=== PATIENT | male | born 1995 | race Asian ===

== ENCOUNTER 2020-03-14 11:53 | Observation (INO) ==
[2020-03-14] MEDS ORDERED: SODIUM CHLORIDE 0.9% 1000ML 1,000 ML IV SCH (14:00)
[2020-03-14] MEDS ORDERED: ONDANSETRON INJ 2 MG/ML 2 ML VIAL IV STA (14:00)
--- NOTE | 2020-03-14 14:13 | Emergency Department Note ---
History of Present Illness General Chief Complaint: Abdominal Pain Stated Complaint: ABD PAIN Time Seen by Provider: 03/14/20 13:48 Source: patient Mode of arrival: ambulatory Limitations: no limitations History of Present Illness Provider Complaint: abdominal pain Onset (ago): 1 day(s) Pain Consistency: constant Location: RLQ Radiation: none Severity: moderate Maximum Pain Intensity: 7 Current Pain Intensity: 7 Quality: + stabbing and + sharp Relieved By: + nothing Exacerbated By: + movement Associated Symptoms: + nausea Treatments prior to arrival: none This 24-year-old male patient presents to the emergency department today for evaluation of right lower quadrant abdominal pain. The patient is here as a referral from [facility] for acute appendicitis rule out. The patient states over the weekend, he had some left lower quadrant pain. He was feeling somewhat better, but yesterday developed sudden onset of severe nausea and difficulty sleeping. At 5 AM, he awoke with right lower quadrant pain. The patient states the pain is significantly worse with moving. He has been unable to eat since yesterday but did drink a little bit of water at 1030 today. He does report a fever of 100.4 F this morning. He has taken no medications for his symptoms. He reports nausea but no vomiting. The pain has been progressively worsening and is radiating toward the umbilicus. He denies any chest pain, dyspnea, numbness, tingling, weakness, recent injury or trauma. He denies any flank pain. Home Medications Home Medications Medication Instructions Recorded Confirmed Type No Known Home Medications 03/14/20 03/14/20 History Allergies Allergy/AdvReac Type Severity Reaction Status Date / Time No Known Allergies Allergy Unverified 03/14/20 14:58 Past Med/Surg History Medical History No pertinent past medical history Surgical History No pertinent past surgical history Social History Smoking Status: Never smoker Do You Dip or Chew Tobacco: No; Hx Alcohol Use: No Hx Substance Use: No Review of Systems A total of 10 systems reviewed and were otherwise negative Physical Exam Vital Signs: Vital Signs - 24 hr 03/14/20 12:07 03/14/20 14:30 03/14/20 15:30 Temperature 37.5 C Temperature Source Oral Pulse Rate 118 H Pulse Rate [Apical ] Pulse Rate [Left A pical] 102 H Pulse Rhythm [Apic al] Pulse Rhythm [Left Apical] Regular Pulse Strength [Le ft Apical] Normal Respiratory Rate 18 20 Respiratory Effort / Characteristics Non-Labored Respiratory Depth Normal Respiratory Patter n Blood Pressure 137/77 Blood Pressure [Le ft Arm] Blood Pressure Alanis n 97 Blood Pressure Alanis n [Left Arm] Blood Pressure Pos ition [Left Arm] Pulse Oximetry 96 Oxygen Delivery Me thod Room Air Room Air Room Air Oxygen Flow Rate Sepsis Recent Feve r Within 48 Hours Yes Sepsis New/Unexpla ined Change in Men mayco Status No Sepsis Action Take n by Nursing No Action Required 03/14/20 16:24 03/14/20 16:27 03/14/20 16:48 Temperature 37.6 C H Temperature Source Oral Pulse Rate 91 H Pulse Rate [Apical ] Pulse Rate [Left A pical] 102 H Pulse Rhythm [Apic al] Pulse Rhythm [Left Apical] Regular Pulse Strength [Le ft Apical] Normal Respiratory Rate 20 18 Respiratory Effort / Characteristics Non-Labored Sponta neous Respiratory Depth Normal Respiratory Patter n Blood Pressure Blood Pressure [Le ft Arm] 122/76 144/88 H Blood Pressure Alanis n Blood Pressure Alanis n [Left Arm] 91 106 Blood Pressure Pos ition [Left Arm] Lying Pulse Oximetry 98 98 Oxygen Delivery Me thod Room Air Room Air Oxygen Flow Rate Sepsis Recent Feve r Within 48 Hours Sepsis New/Unexpla ined Change in Men mayco Status Sepsis Action Take n by Nursing 03/14/20 17:49 03/14/20 17:55 03/14/20 18:05 Temperature 36.7 C Temperature Source Temporal Artery Sc an Pulse Rate Pulse Rate [Apical ] 75 77 79 Pulse Rate [Left A pical] Pulse Rhythm [Apic al] Regular Regular Regular Pulse Rhythm [Left Apical] Pulse Strength [Le ft Apical] Respiratory Rate 15 16 16 Respiratory Effort / Characteristics Non-Labored Sponta neous Non-Labored Sponta neous Non-Labored Sponta neous Respiratory Depth Normal Normal Normal Respiratory Patter n Regular Regular Regular Blood Pressure Blood Pressure [Le ft Arm] 129/79 125/88 124/81 Blood Pressure Alanis n Blood Pressure Alanis n [Left Arm] 95 100 95 Blood Pressure Pos ition [Left Arm] Semi-fowlers Semi-fowlers Semi-fowlers Pulse Oximetry 98 97 98 Oxygen Delivery Me thod Oxymask Oxymask Oxymask Oxygen Flow Rate 6 6 6 Sepsis Recent Feve r Within 48 Hours Sepsis New/Unexpla ined Change in Men mayco Status Sepsis Action Take n by Nursing 03/14/20 18:15 03/14/20 18:25 03/14/20 18:35 Temperature 37.4 C Temperature Source Temporal Artery Sc an Pulse Rate Pulse Rate [Apical ] 85 88 89 Pulse Rate [Left A pical] Pulse Rhythm [Apic al] Regular Regular Regular Pulse Rhythm [Left Apical] Pulse Strength [Le ft Apical] Respiratory Rate 19 18 15 Respiratory Effort / Characteristics Non-Labored Sponta neous Non-Labored Sponta neous Non-Labored Sponta neous Respiratory Depth Normal Normal Normal Respiratory Patter n Regular Regular Regular Blood Pressure Blood Pressure [Le ft Arm] 121/81 134/89 119/84 Blood Pressure Alanis n Blood Pressure Alanis n [Left Arm] 94 104 95 Blood Pressure Pos ition [Left Arm] Semi-fowlers Semi-fowlers Semi-fowlers Pulse Oximetry 100 100 100 Oxygen Delivery Me thod Nasal Cannula Nasal Cannula Nasal Cannula Oxygen Flow Rate 2 2 2 Sepsis Recent Feve r Within 48 Hours Sepsis New/Unexpla ined Change in Men mayco Status Sepsis Action Take n by Nursing 03/14/20 18:45 03/14/20 19:00 03/14/20 19:15 Temperature Temperature Source Pulse Rate Pulse Rate [Apical ] 86 87 90 Pulse Rate [Left A pical] Pulse Rhythm [Apic al] Regular Regular Regular Pulse Rhythm [Left Apical] Pulse Strength [Le ft Apical] Respiratory Rate 20 13 20 Respiratory Effort / Characteristics Non-Labored Sponta neous Non-Labored Sponta neous Non-Labored Sponta neous Respiratory Depth Normal Normal Normal Respiratory Patter n Regular Regular Regular Blood Pressure Blood Pressure [Le ft Arm] 133/75 144/99 H 128/82 Blood Pressure Alanis n Blood Pressure Alanis n [Left Arm] 94 114 97 Blood Pressure Pos ition [Left Arm] Semi-fowlers Semi-fowlers Semi-fowlers Pulse Oximetry 100 97 96 Oxygen Delivery Me thod Nasal Cannula Room Air Room Air Oxygen Flow Rate 2 Sepsis Recent Feve r Within 48 Hours Sepsis New/Unexpla ined Change in Men mayco Status Sepsis Action Take n by Nursing 03/14/20 19:30 Temperature Temperature Source Pulse Rate Pulse Rate [Apical ] 88 Pulse Rate [Left A pical] Pulse Rhythm [Apic al] Regular Pulse Rhythm [Left Apical] Pulse Strength [Le ft Apical] Respiratory Rate 22 Respiratory Effort / Characteristics Non-Labored Sponta neous Respiratory Depth Normal Respiratory Patter n Regular Blood Pressure Blood Pressure [Le ft Arm] 132/87 Blood Pressure Alanis n Blood Pressure Alanis n [Left Arm] 102 Blood Pressure Pos ition [Left Arm] Semi-fowlers Pulse Oximetry 98 Oxygen Delivery Me thod Room Air Oxygen Flow Rate Sepsis Recent Feve r Within 48 Hours Sepsis New/Unexpla ined Change in Men mayco Status Sepsis Action Take n by Nursing Physical Exam: VITALS: Vitals are noted on the nurse's note and reviewed by myself. Vital signs stable. GENERAL: This is a 24-year-old male, in no acute distress, nondiaphoretic, well-developed well-nourished. SKIN: The skin was without rashes, erythema, edema, or bruising. There is no tenting of the skin. Capillary refill less than 2 seconds. HEAD: Normocephalic atraumatic. EYES: Conjunctivae without injection, sclerae without icterus. NECK: Supple without nuchal rigidity. No lymphadenopathy. No JVD. HEART: Regular rate and rhythm without murmurs gallops or rubs. LUNGS: Clear to auscultation bilaterally without wheezes, rales or rhonchi. No retractions or accessory muscle use. ABDOMEN: Positive bowel sounds x 4. Normal tympanic percussion. Right lower quadrant tenderness to palpation. The abdomen is diffusely distended. No obvious masses or organomegaly. Vasquez sign negative. There is diffuse guarding and rebound tenderness. No CVA tenderness bilaterally. MUSCULOSKELETAL: No muscle atrophy, erythema, or edema noted. Full range of motion without joint tenderness in all extremities. No tenderness to palpation. Normal gait. Strength 5/5 throughout. NEURO: Patient was alert and oriented to person place and time. No focal neurological deficits. Course Course The patient was seen and evaluated as above. An order was placed for continuous cardiac monitoring. The monitor shows a sinus tachycardia at a rate of 118 bpm. IV access obtained, labs drawn. Patient medicated with IV fluids and Zofran. Imaging performed and reviewed by myself and radiologist as noted. Labs reviewed by myself. I discussed the findings with the patient at bedside. I discussed the case with the general surgery team. They did agree to see and evaluate the patient. Administered Medications Discontinued Medications Bupivacaine HCl (Bupivacaine 0.5 % 5 Mg/1 Ml Mpf 30ml Vial) Confirm Administered Dose 30 ml .ROUTE .STK-MED ONE Stop: 03/14/20 16:17 Last Admin: 03/14/20 17:25 Dose: 30 ml Documented by: [id number] Epinephrine HCl (Epinephrine Inj 1 Mg/Ml Amp) Confirm Administered Dose 1 mg .ROUTE .STK-MED ONE Stop: 03/14/20 16:16 Last Admin: 03/14/20 17:28 Dose: 0.15 mg Documented by: [id number] Sodium Chloride (Nss 1000ml) 1,000 mls @ 999 mls/hr IV .Q1H1M CANDELARIA Stop: 03/14/20 15:00 Last Admin: 03/14/20 15:11 Dose: 999 mls/hr Documented by: [id number] Cefoxitin Sodium (Mefoxin) 2,000 mg in 60 mls @ 100 mls/hr IV NOW STA Stop: 03/14/20 16:23 Last Admin: 03/14/20 16:24 Dose: 100 mls/hr Documented by: [id number] Ioversol (Ioversol 100ml) 94 ml IV ONCE ONE Stop: 03/14/20 14:52 Last Admin: 03/14/20 14:51 Dose: 94 ml Documented by: [id number] Ondansetron HCl (Ondansetron Inj 2 Mg/Ml 2 Ml Vial) 4 mg IV NOW STA Stop: 03/14/20 14:01 Last Admin: 03/14/20 15:11 Dose: 4 mg Documented by: [id number] Medical Decision Making Differential Diagnosis + peptic ulcer disease, + biliary pathology, + UTI, + obstruction, + mesenteric ischemia, + aortic pathology, + infections, + inflammatory bowel disease, + renal colic, + torsion (male), + epididymitis (male), + abdominal pain, + appendicitis, + calculus of kidney, + constipation, + diverticulitis, + pasha roenteritis, + pancreatitis and + small bowel obstruction Home Medications Current Medication List: was personally reviewed by me Laboratory Data Attestation: I reviewed the patient's lab results. Leukocytosis of 17,000. No anemia or thrombocytopenia. Renal, hepatic function, and electrolytes without significant abnormality. U/A negative for infection. Covid-19 negative. Result diagrams: 03/14/20 14:29 03/14/20 14:29 Lab Results 03/14/20 03/14/20 03/14/20 Range/Units 14:29 14:29 14:37 WBC 17.62 H (4.8-10.8) K/uL RBC 4.87 (4.7-6.1) M/uL Hgb 15.8 (14.0-18.0) g/dL POC Hgb 16.3 (14.0-18.0) g/dl Hct 44.4 (42-52) % POC Hct 48 (42-52) % MCV 91.2 (80-100) fL MCH 32.4 (25-34) pg MCHC 35.6 (32-36) g/dL RDW Std Deviation 37.2 (36.4-46.3) fL RDW Coeff of Tyrel 11.3 L (11.5-14.5) % Plt Count 254 (130-400) K/uL MPV 10.4 (7.4-10.4) fL Immature Gran % (Auto) 0.3 % Neut % (Auto) 82.4 % Lymph % (Auto) 9.2 % [place] % (Auto) 7.9 % Eos % (Auto) 0.1 % Baso % (Auto) 0.1 % Neut # (Auto) 14.54 H (1.4-6.5) K/uL Lymph # (Auto) 1.62 (1.2-3.4) K/uL [place] # (Auto) 1.39 H (0.11-0.59) K/uL Eos # (Auto) 0.01 (0-0.5) K/uL Baso # (Auto) 0.01 (0-0.2) K/uL Immature Gran # (Auto) 0.05 H (0.00-0.02) K/uL POC Sodium 138 (135-144) mmol/L Sodium 136 (136-145) mmol/L POC Potassium 3.3 (3.3-5.0) mmol/L Potassium 3.2 L (3.5-5.1) mmol/L POC Chloride 98 L (101-112) mmol/L Chloride 101 (98-107) mmol/L Carbon Dioxide 29 (21-32) mmol/L POC Total CO2 25 (24-31) mmol/L Anion Gap 6.0 (3-11) POC Anion Gap 20.0 (16-25) mmol/L POC BUN 12 (7-18) mg/dl BUN 12 (7-18) mg/dl Creatinine 1.19 (0.6-1.4) mg/dl POC Creatinine 1.0 (0.6-1.3) mg/dl Est Cr Clr Drug Dosing 113.2 ml/min Est GFR ( Amer) 99.9 Est GFR (Non-Af Amer) 86.2 BUN/Creatinine Ratio 10.2 (10-20) Glucose 97 (70-99) mg/dl POC Glucose (other) 100 H (70-99) mg/dl Calcium 9.4 (8.5-10.1) mg/dl POC Ioniz Calcium Stu 1.20 (1.12-1.32) mmol/l Total Bilirubin 1.3 H (0.2-1) mg/dl AST 4 L (15-37) U/L ALT 22 (12-78) U/L Alkaline Phosphatase 65 (45-117) U/L Total Protein 9.2 H (6.4-8.2) gm/dl Albumin 4.6 (3.4-5.0) gm/dl Globulin 4.6 H (2.5-4.0) gm/dl Albumin/Globulin Ratio 1.0 (0.9-2) Lipase 141 (73-393) U/L Urine Color Urine Appearance (Clear) Urine pH (4.5-7.5) Ur Specific [place] (1.000-1.030) Urine Protein (Negative) Urine Glucose (UA) (Negative) Urine Ketones (Negative) Urine Blood (Negative) Urine Nitrite (Negative) Urine Bilirubin (Negative) Urine Urobilinogen (Negative) Ur Leukocyte Esterase (Negative) Urine WBC (Auto) (0-5) /hpf Urine RBC (Auto) (0-4) /hpf U Hyaline Cast (Auto) (0-5) /lpf U Epithel Cells (Auto) (0-5) /lpf Urine Bacteria (Auto) (Negative) COVID-19 Eval Order SARS-CoV-2, RNA, NAAT (NEGATIVE) 03/14/20 03/14/20 03/14/20 Range/Units 15:15 15:15 15:45 WBC (4.8-10.8) K/uL RBC (4.7-6.1) M/uL Hgb (14.0-18.0) g/dL POC Hgb (14.0-18.0) g/dl Hct (42-52) % POC Hct (42-52) % MCV (80-100) fL MCH (25-34) pg MCHC (32-36) g/dL RDW Std Deviation (36.4-46.3) fL RDW Coeff of Tyrel (11.5-14.5) % Plt Count (130-400) K/uL MPV (7.4-10.4) fL Immature Gran % (Auto) % Neut % (Auto) % Lymph % (Auto) % [place] % (Auto) % Eos % (Auto) % Baso % (Auto) % Neut # (Auto) (1.4-6.5) K/uL Lymph # (Auto) (1.2-3.4) K/uL [place] # (Auto) (0.11-0.59) K/uL Eos # (Auto) (0-0.5) K/uL Baso # (Auto) (0-0.2) K/uL Immature Gran # (Auto) (0.00-0.02) K/uL POC Sodium (135-144) mmol/L Sodium (136-145) mmol/L POC Potassium (3.3-5.0) mmol/L Potassium (3.5-5.1) mmol/L POC Chloride (101-112) mmol/L Chloride (98-107) mmol/L Carbon Dioxide (21-32) mmol/L POC Total CO2 (24-31) mmol/L Anion Gap (3-11) POC Anion Gap (16-25) mmol/L POC BUN (7-18) mg/dl BUN (7-18) mg/dl Creatinine (0.6-1.4) mg/dl POC Creatinine (0.6-1.3) mg/dl Est Cr Clr Drug Dosing ml/min Est GFR ( Amer) Est GFR (Non-Af Amer) BUN/Creatinine Ratio (10-20) Glucose (70-99) mg/dl POC Glucose (other) (70-99) mg/dl Calcium (8.5-10.1) mg/dl POC Ioniz Calcium Stu (1.12-1.32) mmol/l Total Bilirubin (0.2-1) mg/dl AST (15-37) U/L ALT (12-78) U/L Alkaline Phosphatase (45-117) U/L Total Protein (6.4-8.2) gm/dl Albumin (3.4-5.0) gm/dl Globulin (2.5-4.0) gm/dl Albumin/Globulin Ratio (0.9-2) Lipase (73-393) U/L Urine Color Yellow Urine Appearance Clear (Clear) Urine pH 5.5 (4.5-7.5) Ur Specific [place] 1.044 H (1.000-1.030) Urine Protein Negative (Negative) Urine Glucose (UA) Negative (Negative) Urine Ketones Negative (Negative) Urine Blood Trace H (Negative) Urine Nitrite Negative (Negative) Urine Bilirubin Negative (Negative) Urine Urobilinogen Negative (Negative) Ur Leukocyte Esterase Negative (Negative) Urine WBC (Auto) 1-5 (0-5) /hpf Urine RBC (Auto) 0-4 (0-4) /hpf U Hyaline Cast (Auto) 0 (0-5) /lpf U Epithel Cells (Auto) 0-5 (0-5) /lpf Urine Bacteria (Auto) Negative (Negative) COVID-19 [facility] SARS-[facility], RNA, NAAT NEGATIVE (NEGATIVE) Imaging Data Radiologist's Impression: CT abd pelvis IV con only CLINICAL HISTORY: Right lower quadrant abdominal pain COMPARISON STUDY: None. TECHNIQUE: The patient was scanned in a dynamic helical fashion during intravenous administration of 94 cc of Optiray 320 A dose lowering technique was utilized adhering to the principles of ALARA. CT DOSE: 741.73 mGycm FINDINGS: Lower chest: The heart is normal in size and configuration, without pericardial effusion. The lung bases and pleural spaces are clear. Liver: This 2 small to characterize 4 mm hypodensity within the right hepatic dome. This is of doubtful acute clinical significance. Hepatic and portal veins appear patent. Gallbladder: Unremarkable. Spleen: Normal in size and attenuation. Pancreas: Unremarkable. Adrenal glands: Unremarkable. Kidneys: There is symmetric renal cortical enhancement. The kidneys are normal in size without hydronephrosis. Bowel: There are no transition zones to indicate bowel obstruction. There is no evidence of acute diverticulitis. There is a dilated fluid-filled appendix with periappendiceal infiltration. The findings are indicative of acute appendicitis. The appendix measures 11 mm in diameter. Peritoneum: There is trace free pelvic fluid. There is no free intraperitoneal air. Vasculature: The abdominal aorta is normal in course and caliber. Adenopathy: None. Pelvic viscera: The bladder, and pelvic viscera are unremarkable. Skeletal structures: No destructive osseous lesions are seen. IMPRESSION: 1. Acute appendicitis. Surgical consultation recommended. ACT 112: Negative or not required by law. Electronically signed by: Sherman Acuña M.D. 03/14/2020 2:58 PM Blood Pressure Blood Pressure Findings: Elevated blood pressure Blood Pressure Disposition: elevated BP felt to be situational MDM Narrative This 24 year old male patient presents to the ED today for RLQ abdominal pain. Exam and history concerning for acute appendicitis. Labs and imaging consistent with this. Pt. does have leukocytosis of 17,000 and evidence of acute appendici tis on CT scan. I discussed the case with the general surgery team who did agree to see and evaluate the patient. He will go to the OR for further management. Please see surgery dictation regarding ongoing management and care of this patient. The chart was completed utilizing [employer] Speech voice recognition software. Grammatical errors, random word insertions, pronoun errors, and incomplete sente nces are an occasional consequence of this system due to software limitations, ambient noise, and hardware issues. Any formal questions or concerns about the content, text, or information contained within the body of this dictation should be directly addressed to the provider for clarification. Impression & Plan Acute appendicitis Discharge Plan Visit Data Chief Complaint: Abdominal Pain Stated Complaint: ABD PAIN ED Provider: [facility] ED Midlevel Provider: Princess Schaeffer Discharge Problem: Acute appendicitis Patient Disposition: Still a Patient Discharge Instructions Interventions: ED Discharge Assessment Last Done: 03/14/20 16:24
[2020-03-14 14:44] LABS: Basophils # (auto) 0.01 K/uL (0-0.2); Basophils % (auto) 0.1 %; Eosinophils # (auto) 0.01 K/uL (0-0.5); Eosinophils % (auto) 0.1 %; Hematocrit (blood only) 44.4 % (42-52); Hemoglobin 15.8 g/dL (14.0-18.0); Immature Granulocytes # (auto) 0.05 K/uL (0.00-0.02); Immature Granulocytes % (auto) 0.3 %; Lymphocytes # (auto) 1.62 K/uL (1.2-3.4); Lymphocytes % (auto) 9.2 %; Mean Corpuscular Hemoglobin 32.4 pg (25-34); Mean Corpuscular Hgb Conc 35.6 g/dL (32-36); Mean Corpuscular Volume 91.2 fL (80-100); Mean Platelet Volume 10.4 fL (7.4-10.4); Monocytes # (auto) 1.39 K/uL (0.11-0.59); Monocytes % (auto) 7.9 %; Neutrophils # (auto) 14.54 K/uL (1.4-6.5); Neutrophils % (auto) 82.4 %; Platelet Count 254 K/uL (130-400); RDW Coefficient of Variation 11.3 % (11.5-14.5); RDW Standard Deviation 37.2 fL (36.4-46.3); Red Blood Count 4.87 M/uL (4.7-6.1); White Blood Count 17.62 K/uL (4.8-10.8)
[2020-03-14 14:48] LABS: iSTAT Hemoglobin 16.3 g/dl (14.0-18.0); iSTAT Ionized Calcium 1.2 mmol/l (1.12-1.32); iSTAT Potassium 3.3 mmol/L (3.3-5.0)
[2020-03-14] MEDS ORDERED: IOVERSOL 100ml IV ONE (14:51)
--- NOTE | 2020-03-14 14:59 | CT Scan Report ---
CT abd pelvis IV con only CLINICAL HISTORY: Right lower quadrant abdominal pain COMPARISON STUDY: None. TECHNIQUE: The patient was scanned in a dynamic helical fashion during intravenous administration of 94 cc of Optiray 320 A dose lowering technique was utilized adhering to the principles of ALARA. CT DOSE: 741.73 mGycm FINDINGS: Lower chest: The heart is normal in size and configuration, without pericardial effusion. The lung ba ses and pleural spaces are clear. Liver: This 2 small to characterize 4 mm hypodensity within the right hepatic dome. This is of doubtf ul acute clinical significance. Hepatic and portal veins appear patent. Gallbladder: Unremarkable. Spleen: Normal in size and attenuation. Pancreas: Unremarkable. Adrenal glands: Unremarkable. Kidneys: There is symmetric renal cortical enhancement. The kidneys are normal in size without hydron ephrosis. Bowel: There are no transition zones to indicate bowel obstruction. There is no evidence of acute div erticulitis. There is a dilated fluid-filled appendix with periappendiceal infiltration. The findings are indicative of acute appendicitis. The appendix measures 11 mm in diameter. Peritoneum: There is trace free pelvic fluid. There is no free intraperitoneal air. Vasculature: The abdominal aorta is normal in course and caliber. Adenopathy: None. Pelvic viscera: The bladder, and pelvic viscera are unremarkable. Skeletal structures: No destructive osseous lesions are seen. IMPRESSION: 1. Acute appendicitis. Surgical consultation recommended. ACT 112: Negative or not required by law. Electronically signed by: Sherman Acuña M.D. 03/14/2020 2:58 PM
[2020-03-14 15:06] LABS: Albumin Level 4.6 gm/dl (3.4-5.0); BUN Creatinine Ratio 10.2 (10-20); Calcium 9.4 mg/dl (8.5-10.1); Creatinine Clr Calc Pharmacy 113.2 ml/min; Est GFR (African American) 99.9; Est GFR (Non-African American) 86.2; Potassium 3.2 mmol/L (3.5-5.1)
[2020-03-14 15:09] LABS: Bilirubin,Total 1.3 mg/dl (0.2-1); Globulin 4.6 gm/dl (2.5-4.0); Total Protein 9.2 gm/dl (6.4-8.2)
--- NOTE | 2020-03-14 15:36 | History & Physical Report ---
Date of Service March 14, 2020 Assessment & Plan (1) Acute appendicitis: This is a 24ym with no significant PMH who presents to the [facility] ED on 03/14/20 with complaints of abdominal pain. Workup in the ED revealed a WBC of 17.6, tachycardia >100, and a CT a/p with evidence of acute appendicitis. On examination patient is ttp in the RLQ with + guarding. He denies any prior abdominal surgical history. Based on workup and examination we will proceed with surgical intervention and take him to the OR for a laparoscopic appendectomy. Patient has been made NPO with IVF and started on preop abx. Covid testing has been ordered. Dr. Farnsworth will be by to obtain surgical consent. as above. pt seen. discussed findings/options/risks ( bleeding/infection/injury to another organ/dvt/pe/mi/cva etc...). questions answered. will proceed eduar with lap/poss open appendectomy History of Present Illness Primary Care Provider: Rust This is a 24ym with no significant PMH who presents to the [facility] ED on 03/14/20 with complaints of abdominal pain. Patient reports starting on wednesday he developed some mild LLQ abdominal pain, made worse with movement. On Wednesday he had more of what he felt like what was a stomach ache & pain in his central abdomen, and from 10am on and he could not get much sleep nor get comfortable. Around 5am today his "stomach-ache" improved, but he began to develop worsening RLQ pain. He currently reports the pain a 7/10 in severity, made worse with movement. He came into the ED due to ongoing and worsening symptoms. In the ED patient was found to have a WBC of 17.[address] a/p was performed that revealed findings consistent with acute appendicitis. Patient reports he did have a temperature of 100.4F this AM. He otherwise denies chills, nausea/vomiting, chest pain/shortness of breath, diarrhea or constipation. Other than drinking some water this morning, he did not have anything to eat since yesterday. Allergies Allergy/AdvReac Type Severity Reaction Status Date / Time No Known Allergies Allergy Unverified 03/14/20 14:58 Home Medications Home Medications Medication Instructions Recorded Confirmed Type No Known Home Medications 03/14/20 03/14/20 History Past Med/Surg History Medical History (Updated 03/14/20 @ 16:07 by Anya Juarez MD) No pertinent past medical history Surgical History (Updated 03/14/20 @ 16:06 by Anya Juraez MD) No pertinent past surgical history Social History Smoking Status: Never smoker Review of Systems Constitutional: + fever; no chills Respiratory: no dyspnea Cardiovascular: no chest pain Gastrointestinal: + abdominal pain (RLQ); no nausea, no vomiting and no change in bowel habits Genitourinary: no problem reported Physical Exam Physical Exam: awake/alert Constitutional: well developed, well nourished and cooperative tearful Respiratory: normal respiratory effort Gastrointestinal (Abdomen): Inspection/Auscultation: + abdomen distended Percussion/Palpation: + abdomen tender (ttp rlq; + rosvings) and + guarding (when palpated in rlq) Results & Data Results & Data ([facility]) Vital Signs (Past 12 Hours) Vital Signs Temp Pulse Pulse Resp BP Pulse Ox 03/14/20 15:30 102 H 20 03/14/20 12:07 37.5 C 118 H 18 137/[address] abd pelvis IV con only CLINICAL HISTORY: Right lower quadrant abdominal pain COMPARISON STUDY: None. TECHNIQUE: The patient was scanned in a dynamic helical fashion during intrav enous administration of 94 cc of Optiray 320 A dose lowering technique was utilized adhering to the principles of ALARA. CT DOSE: 741.73 mGycm FINDINGS: Lower chest: The heart is normal in size and configuration, without pericardial effusion. The lung bases and pleural spaces are clear. Liver: This 2 small to characterize 4 mm hypodensity within the right hepatic dome. This is of doubtful acute clinical significance. Hepatic and portal veins appear patent. Gallbladder: Unremarkable. Spleen: Normal in size and attenuation. Pancreas: Unremarkable. Adrenal glands: Unremarkable. Kidneys: There is symmetric renal cortical enhancement. The kidneys are normal in size without hydronephrosis. Bowel: There are no transition zones to indicate bowel obstruction. There is no evidence of acute diverticulitis. There is a dilated fluid-filled appendix with periappendiceal infiltration. The findings are indicative of acute appendicitis. The appendix measures 11 mm in diameter. Peritoneum: There is trace free pelvic fluid. There is no free intraperitoneal air. Vasculature: The abdominal aorta is normal in course and caliber. Adenopathy: None. Pelvic viscera: The bladder, and pelvic viscera are unremarkable. Skeletal structures: No destructive osseous lesions are seen. IMPRESSION: 1. Acute appendicitis. Surgical consultation recommended. ACT 112: Negative or not required by law. Electronically signed by: Sherman Acuña M.D. 03/14/2020 2:58 PM PG Care Time/CCT Total # of Minutes Spent Total Time Spent with Patient: Total time spent is greater than 50% in coordination of care (as documented) at patient's floor/unit and/or counseling patient: Coding Level of Care Code 91183 Initial Inpt Care Lvl 3 Diagnoses Acute appendicitis K35.80
[2020-03-14] MEDS ORDERED: cefOXitin 2,000 MG/60 ML BAG IV STA (15:48)
[2020-03-14] MEDS ORDERED: fentaNYL citrate 100 MCG/2 ML VIAL ONE ×2 (16:04→17:34)
[2020-03-14] MEDS ORDERED: PROPOFOL IV EMULSION 10 MG/ML 20 ML VIAL IV ONE (16:04)
[2020-03-14] MEDS ORDERED: LIDOCAINE HCL 2% 2 ML VIAL/AMP(20MG/ML) INFIL ONE (16:04)
[2020-03-14] MEDS ORDERED: ROCURONIUM BROMIDE 10 MG/ML 5 ML VIAL IV ONE (16:04)
[2020-03-14] MEDS ORDERED: MIDAZOLAM HCL 1 MG/ML 2ML VIAL ONE (16:04)
--- NOTE | 2020-03-14 16:08 | Anesthesiology Consultation ---
Date of Service March 14, 2020 Assessment & Plan (1) Encounter for pre-operative examination: Chart Review Chart Review: Acceptable Risk for Surgery and Patient NOT seen in Pre Admission Testing Consults Requested none ASA [id number] Proposed Anesthesia Anesthesia Type: General Risk / Benefits Reviewed With: PT / POA / Parent / Guardian, Accepts Plan and Informed Consent Obtained History Surgery Operation Date: 03/14/20 16:05 Proposed Procedures p Laparoscopic Appendectomy - Yossi Farnsworth, DO Height/Weight Height: 6 ft 2 in Weight: 91.5 kg Allergies Allergy/AdvReac Type Severity Reaction Status Date / Time No Known Allergies Allergy Unverified 03/14/20 14:58 Medications Home Medications Medication Instructions Recorded Confirmed Last Taken No Known Home Medications 03/14/20 03/14/20 Unknown NPO Date Last Intake of Fluids: 03/14/20 Time Last Intake of Fluids: 11:00 Date Last Intake of Solids: 03/13/20 Time Last Intake of Solids: 14:00 Past Medical History Medical History No pertinent past medical history Exercise / Class Metabolic Activity II 4-5 Yardwork/Stairs/Walk up hill Negative for chest pain or shortness of breath. Past Surgical History Surgical History No pertinent past surgical history Past Anesthesia History No Family Hx of Anesthesia Complications History of PONV No Hx of PONV and No Hx of Motion Sickness Social History Smoking Status: Never smoker Do You Dip or Chew Tobacco: No Hx Alcohol Use: No Hx Substance Use: No Review of Systems Patient denies active symptoms of GERD. Physical Exam Vital Signs Last Vital Signs Temp 37.5 C 03/14/20 12:07 Pulse 91 H 03/14/20 16:24 Resp 20 03/14/20 16:24 BP 122/76 03/14/20 16:27 Pulse Ox 98 03/14/20 16:24 Constitutional not obese ENMT Mouth: no TMJ abnormality and oral opening not small Thyromental Distance: > or= 3.5 Finger Breadths Mallampati Class: III Neck normal visual inspection; neck extension not limited Respiratory normal respiratory effort Auscultation: lungs clear to auscultation bilaterally Cardiovascular Rate/Rhythm: regular rate and regular rhythm Heart Sounds: no murmur Neurologic moves all extremities Psychiatric Orientation: alert and oriented x 3 Testing Laboratory Results 03/14/20 14:29 03/14/20 14:29 Urine Color Yellow 03/14/20 15:45 Urine Appearance Clear (Clear) 03/14/20 15:45 Urine pH 5.5 (4.5-7.5) 03/14/20 15:45 Ur Specific Waldron 1.044 (1.000-1.030) H 03/14/20 15:45 Urine Protein Negative (Negative) 03/14/20 15:45 Urine Glucose (UA) Negative (Negative) 03/14/20 15:45 Urine Ketones Negative (Negative) 03/14/20 15:45 Urine Nitrite Negative (Negative) 03/14/20 15:45 Ur Leukocyte Esterase Negative (Negative) 03/14/20 15:45 Urine WBC (Auto) 1-5 /hpf (0-5) 03/14/20 15:45 Urine RBC (Auto) 0-4 /hpf (0-4) 03/14/20 15:45 U Hyaline Cast (Auto) 0 /lpf (0-5) 03/14/20 15:45 U Epithel Cells (Auto) 0-5 /lpf (0-5) 03/14/20 15:45 Urine Bacteria (Auto) Negative (Negative) 03/14/20 15:45 03/14/20 14:37 POC Glucose (other) 100 H
[2020-03-14] MEDS ORDERED: fentaNYL citrate 100 MCG/2 ML VIAL IV PRN (16:09)
[2020-03-14] MEDS ORDERED: ONDANSETRON INJ 2 MG/ML 2 ML VIAL IV PRN ×2 (16:09→20:02)
[2020-03-14] MEDS ORDERED: ePHEDrine sulfate 50 MG/ML AMP IV PRN (16:09)
[2020-03-14] MEDS ORDERED: ATROPINE SULFATE 0.1 MG/ML 10ML SYR IV PRN (16:09)
[2020-03-14 16:12] LABS: Appearance Urine Clear (Clear); Bacteria Urine Automated Negative (Negative); Bilirubin Urine Negative (Negative); Blood Urine Trace (Negative); Cast Urine Automated 0 /lpf (0-5); Color Urine Yellow; Epithelial Cell Urine Auto 0-5 /lpf (0-5); Glucose Urine UA Negative (Negative); Ketones Urine Negative (Negative); Leukocyte Esterase Urine Negative (Negative); Nitrite Urine Negative (Negative); Protein Urine Negative (Negative); RBC Urine Automated 0-4 /hpf (0-4); Specific Gravity Urine 1.044 (1.000-1.030); Urobilinogen Urine Negative (Negative); pH Urine 5.5 (4.5-7.5)
[2020-03-14] MEDS ORDERED: EPINEPHrine INJ 1 MG/ML AMP ONE (16:15)
[2020-03-14] MEDS ORDERED: BUPIVACAINE 0.5 % 5 MG/1 ML MPF 30ML VIAL ONE (16:16)
[2020-03-14] MEDS ORDERED: ONDANSETRON INJ 2 MG/ML 2 ML VIAL ONE (17:14)
[2020-03-14] MEDS ORDERED: KETOROLAC 30 MG/ML VIAL ONE (17:14)
[2020-03-14] MEDS ORDERED: DEXAMETHASONE SOD INJ 4 MG/ML VIAL ONE (17:14)
--- NOTE | 2020-03-14 17:40 | Operative Report ---
PG Post Operative Report Pre & Post Diagnosis Operation Date: 03/14/20 16:05 Pre-Op Diagnosis: Acute Appendicitis Post-Op Diagnosis: Acute Appendicitis I identified the patient and participated in the time-out.: Yes Procedure Operation Date: 03/14/20 16:05 Actual Procedures p Laparoscopic Appendectomy(Not Applicable) - Yossi Farnsworth DO Surgeon Yossi Farnsworth DO Data Assistant gerard Velásquez Estimated Blood Loss 5 Findings Consistent with Post-Op Diagnosis Specimens appendix Description of Procedure After informed consent was obtained the patient was taken to the operating room and placed in supine position. After successful intubation the left arm was tucked and the abdomen was sterilely prepped and draped in usual fashion. I began by making a periumbilical incision with an 11 blade scalpel and carried this down through the soft tissue using electrocautery. The anterior rectus fascia was opened using electrocautery and 2 #0 Vicryl stay sutures were placed. The peritoneum was elevated using hemostats and incised under direct vision using a Metzenbaum scissor. A finger sweep was performed. A 12 mm Hammer trocar was placed and the abdomen was insufflated to 18 mmHg. A laparoscope was inserted and the abdomen was examined in 360. A suprapubic 5 mm port and a left lower quadrant 12 mm port were placed under direct vision. The patient was air planed to the left as well as placed in a slight Trendelenburg position. We began by looking in the right lower quadrant. We were able to readily identify the appendix and it was grossly inflamed. It had not perforated. There is a small amount of purulent fluid in the right lower quadrant and the pelvis. We immediately irrigated and suctioned this out. I was able to use primarily blunt dissection to pull the appendix away from the right lower quadrant sidewall. I was then able to use a NOE purple cartridge stapler to transect both the mesent keyur of the appendix as well as the appendix itself at its base with the cecum. It took 2 firings of 60 mm purple cartridge used to accomplish this. It was then placed into an Endo Catch bag and removed from the camera port site. We thoroughly irrigated the right lower quadrant as well as the pelvis. There was adequate hemostasis. I ran the small bowel backwards from the terminal ileum for about 6 feet all of which was normal. All the peritoneal surfaces were normal. Small/ large bowel, liver, stomach etc. all appeared grossly normal. We did a final irrigation and then removed all the trochars and desufflated the abdomen. The fascia of the camera port as well as the left lower quadrant were closed using 0 Vicryl in [id number] fashion. Wounds were all irrigated and closed using 4-0 Monocryl. Marcaine was injected around them for postoperative analgesia and skin glue used as a dressing. The patient was awakened extubated and transferred to recovery in stable condition. My physician's computer lab assistant was present through the entire case. She assisted with prepping the patient and helped with exposure for port placement, helped run the camera and helped with fascial/wound closure at the end of the procedure as well as dressing placement. I attest to the content of the Intraoperative Record and any orders documented therein. Any exceptions are noted below. I attest to the content of the Intraoperative Record and any orders documented therein. Any exceptions are noted below.
--- NOTE | 2020-03-14 19:44 | Anesthesiology Progress Note ---
Date of Service March 14, 2020 Anesthesia Post Procedure Vital Signs Vital Signs: Temp Pulse Pulse Pulse Resp BP BP 03/14/20 19:30 88 22 132/87 03/14/20 19:15 90 20 128/82 03/14/20 19:00 87 13 144/99 H 03/14/20 18:45 86 20 133/75 03/14/20 18:35 89 15 119/84 03/14/20 18:25 37.4 C 88 18 134/89 03/14/20 18:15 85 19 121/81 03/14/20 18:05 79 16 124/81 03/14/20 17:55 77 16 125/88 03/14/20 17:49 36.7 C 75 15 129/79 03/14/20 16:48 37.6 C H 102 H 18 144/88 H 03/14/20 16:27 122/76 03/14/20 16:24 91 H 20 03/14/20 15:30 102 H 20 03/14/20 12:07 37.5 C 118 H 18 137/77 Pulse Ox 03/14/20 19:30 98 03/14/20 19:15 96 03/14/20 19:00 97 03/14/20 18:45 100 03/14/20 18:35 100 03/14/20 18:25 100 03/14/20 18:15 100 03/14/20 18:05 98 03/14/20 17:55 97 03/14/20 17:49 98 03/14/20 16:48 98 03/14/20 16:27 03/14/20 16:24 98 03/14/20 15:30 03/14/20 12:07 96 Pain Intensity Right Abdomen: Pain Intensity: 7 Transfer of Care Handoff Completed per policy Notes Mental Status: alert / awake / arousable and participated in evaluation Patient Amnestic to Procedure: Yes Nausea / Vomiting: adequately controlled Pain: adequately controlled Airway Patency, RR, SpO2: stable & adequate BP & HR: stable & adequate Hydration State: stable & adequate Anesthetic Complications: no major complications apparent and Pt Satisfied with anesthetic care
[2020-03-14] MEDS ORDERED: HYDROCODONE/ACETAMOPHEN 5/325MG TAB PO PRN ×2 (20:02)
[2020-03-14] MEDS ORDERED: MoRPHine SULFATE 2 MG/ML CARP IV PRN (20:04)
[2020-03-14] MEDS ORDERED: MoRPHine SULFATE 4 MG/ML 1 ML CARP\\VIAL IV PRN (20:05)
[2020-03-14] MEDS: LACTATED RINGER'S 1,000 ML IV SCH (21:26)
[2020-03-15] MEDS: ceFAZolin 2000MG 2,000 MG/15 ML SYR IV SCH ×2 (00:03→07:59)
[2020-03-15] MEDS: LACTATED RINGER'S 1,000 ML IV SCH (08:08)
--- NOTE | 2020-03-15 08:28 | Surgery Progress Note ---
Date of Service March 15, 2020 Assessment & Plan (1) Acute appendicitis: pod 1 doing well. wants to go home. ok for d/c. instructions discussed. f/u in 1 week. Admission and Anticipated Discharge Date Admission Date: March 14, 2020 Subjective pt feeling much better today. mary anne liquids. Physical Exam Physical Exam: alert. nad abd: soft. incisional discomfort. wounds look good. Results & Data ([facility]) Vital Signs (Past 12 Hours) Vital Signs Temp Pulse Pulse Resp BP Pulse Ox 03/15/20 07:06 36.6 C 95 H 16 100/60 98 03/15/20 03:52 36.9 C 83 15 102/63 97 03/14/20 23:05 36.8 C 80 16 104/58 L 98 03/14/20 22:02 36.9 C 80 16 111/73 98 03/14/20 21:12 37.0 C 80 16 108/73 97 03/14/20 20:37 36.9 C 100 H 16 115/68 95 PG Care Time/CCT Total # of Minutes Spent Total Time Spent with Patient: Total time spent is greater than 50% in coordination of care (as documented) at patient's floor/unit and/or counseling patient: Coding Level of Care Code None Diagnoses Acute appendicitis K35.30 Acute appendicitis type: with localized peritonitis Appendicitis abscess presence: unspecified whether abscess present Appendicitis gangrene presence: unspecified whether gangrene present Appendicitis perforation presence: unspecified whether perforation present (1) Acute appendicitis Acute appendicitis type: with localized peritonitis Appendicitis abscess presence: unspecified whether abscess present Appendicitis gangrene presence: unspecified whether gangrene present Appendicitis perforation presence: unspecified whether perforation present Qualified Code(s): K35.30 - Acute appendicitis with localized peritonitis, without perforation or gangrene
--- NOTE | 2020-03-18 09:26 | Discharge Summary ---
Date of Service March 18, 2020 Admission HPI Per Admitting Provider This is a 24ym with no significant PMH who presents to the [facility] ED on 03/14/20 with complaints of abdominal pain. Patient reports starting on wednesday he developed some mild LLQ abdominal pain, made worse with movement. On Wednesday he had more of what he felt like what was a stomach ache & pain in his central abdomen, and from 10am on and he could not get much sleep nor get comfortable. Around 5am today his "stomach-ache" improved, but he began to develop worsening RLQ pain. He currently reports the pain a 7/10 in severity, made worse with movement. He came into the ED due to ongoing and worsening symptoms. In the ED patient was found to have a WBC of 17.[address] a/p was performed that revealed findings consistent with acute appendicitis. Patient reports he did have a temperature of 100.4F this AM. He otherwise denies chills, nausea/vomiting, chest pain/shortness of breath, diarrhea or constipation. Other than drinking some water this morning, he did not have anything to eat since yesterday. Principal Diagnosis acute appendicitis Discharge Exam awake/alert Respiratory normal respiratory effort Gastrointestinal (Abdomen) Inspection/Auscultation: + abdominal surgical incision (c/d/i with dermabond ove rtop) Discharge Data Allergies Allergy/AdvReac Type Severity Reaction Status Date / Time No Known Allergies Allergy Unverified 03/14/20 14:58 Consultations 03/14/20 15:07 Consult General Surgery Stat Procedures Performed Operation Date: 03/14/20 16:05 Actual Procedures p Laparoscopic Appendectomy(Not Applicable) - Yossi Farnsworth, Ordered Studies 03/14/20 14:00 CT abd pelvis IV con only Stat Hospital Course (1) Acute appendicitis: This is a 24ym with no significant PMH who presents to the [facility] ED on 03/14/20 with complaints of abdominal pain. Workup in the ED revealed a WBC of [address] a/p with evidence of acute appendicitis. On examination patient tender to palpation in the RLQ. Decision was made to take the patient to the OR for a laparoscopic appendectomy with Dr. Farnsworth. The patient tolerated the procedure well, see op note for full details. Post operatively the patient was transferred to the med/surg unit for overnight observation. His diet was advanced as tolerated, he was able to void spontaneously without issues, and pain remained controlled on prn regimen. On POD#1 the patient felt well and he was deemed stable for discharge to home. He was provided discharge instructions and was asked to follow up in clinic within 1-2 weeks. Total Time Total Time Spent Total Time Spent (In Minutes): 10 Discharge Plan Discharge Items Patient Disposition: Home - Self-Care Reason For Visit: S/P lap appy Discharge Diagnosis: acute appendicitis Activity: As commented below Lifting: No more than 10 pounds Bathing: No limitations Exercise/Sports: Wait until after follow-up appointment Non-emergency contact: Surgeon Call non-emergency contact if: you have any medication questions, your symptoms worsen, your pain is worsening, your temperature is above 101, your wound has increased redness, your wound has increased drainage and your wound pain has increased Follow-up/Referrals: Yossi Farnsworth DO [Surgeon] - 03/20/20 9:45 am (Please call to schedule follow up in clinic within 1 week) [facility] [Primary Care Provider] - (please call [facility] for a follow up appointment. ) Diet: Regular Addtl Attending Provider Instructions: may use ibuprofen 600 mg three times daily with food for discomfort. Pending Studies at Discharge: Yes Studies:: pathology Stand-Alone Forms: [facility], Opioid Pain Management, Smoking Cessation Medications and DC Order Prescriptions: New hydrocodone-acetaminophen [Donaldson] 5-325 mg tablet 1 tab PO Q6H PRN (Reason: pain) Qty: 20 RF: 0 No Action No Known Home Medications RF: 0 Discharge Orders: Discharge Order (Routine); Ordered 03/15/20 Ordered By: Yossi Kelly/Other Patient Handouts: Appendectomy Laparoscopic Dc Admission Data Admit Date/Time: 03/14/20 17:43 Attending Provider: Yossi Farnsworth Admit Provider: Maria Del Carmen Velásquez Primary Care Provider: [facility] Other Providers: James Dorsey Jr Other Interventions: Discharge Summary Assessment (RN) Last Done: 03/15/20 10:27 Coding Level of Care Code D/C Day Management <30 mins Diagnoses Acute appendicitis K35.30 Acute appendicitis type: with localized peritonitis Appendicitis abscess presence: unspecified whether abscess present Appendicitis gangrene presence: unspecified whether gangrene present Appendicitis perforation presence: unspecified whether perforation present
== END 2020-03-15 12:05 | disposition home or self-care (01) ==
LOC: ED 11:53 → 3N 16:24 → ED 16:24 → OR 16:24